=== PATIENT | female | born 1935 | race Caucasian/White ===

== ENCOUNTER 2016-10-18 09:25 | Inpatient (IN) | payer MEDICARE, OTHER ==
[~2016-10-18] VITALS: Ht 172.7 cm; Wt 66.2 kg
[~2016-10-18 09:25] MED LIST: AUGMENTIN 875-1 EACH PO; CHRONULAC20 GM/30 M PO; COREG 3.125M3.125 MG PO; DOCUSATE SODIU1 EACH PO; DOXYCYCLINE MO100 MG PO; DULERA 200 MCG8.8 GM INH; ELIQUIS5 MG PO; FLUOXETINE HCL20 MG PO; LEVAQUIN500 MG PO; MEDROL DOSEPAK 24 MG PO; MEGACE TAB 40 M40 MG PO; MELATONIN10 MG PO; MIRALAX PACK 171 PKT GT; NORVASC 5 MG TAB5 MG PO; PREDNISONE20 MG PO; PRILOSEC OTC20 MG PO; PROTONIX40 MG PO; STOOL SOFTENER100 MG PO; TUMS/TITRALAC500 MG PO; TYLENOL 325MG325 MG PO; VENTOLIN/PROVE0.5 ML INH; VITAMIN B-121000 MCG PO; VITAMIN B12-FO1 EACH PO
[2016-10-18 11:21] LABS: HEMOGLOBIN 14.3 gm/dl (12.3-15.3); RED BLOOD COUNT 5.09 M/UL (4.00-5.10); WHITE BLOOD COUNT 16.7 K/UL (4.5-11.0)
[2016-10-19 05:33] LABS: HEMOGLOBIN 11.4 gm/dl (12.3-15.3); RED BLOOD COUNT 4.12 M/UL (4.00-5.10); WHITE BLOOD COUNT 12.3 K/UL (4.5-11.0)
[2016-10-19] MEDS ORDERED: LASIX20 MG PO (11:00)
[2016-10-19] MEDS ORDERED: POTASSIUM CHLO20 ME1 PO (12:46)
[2016-10-19] MEDS ORDERED: SEROQUEL50 MG PO (12:46)
[2016-10-19] MEDS ORDERED: SYMBICORT 160-1 INHA INH (12:47)
[2016-10-20 04:09] LABS: HEMOGLOBIN 11.6 gm/dl (12.3-15.3); RED BLOOD COUNT 4.19 M/UL (4.00-5.10); WHITE BLOOD COUNT 10.4 K/UL (4.5-11.0)
[2016-10-20] MEDS ORDERED: BACTRIM DS TAB1 EACH PO (09:20)
[2016-10-20] MEDS ORDERED: INCRUSE ELLI62.5 MCG INH (17:39)
== END 2016-10-20 10:10 | disposition home or self-care (01) | DRG 189 ==
LOC: ER1 09:25 → PROG CARE 18:32 → ZEROF 18:32 → PROG CARE 10-19 14:21
PROVIDERS: Physician Assistant; ADMIT Family Medicine
DX: J96.21 Acute and chronic respiratory failure with hypoxia (principal); I13.0 Hypertensive heart and chronic kidney disease with heart failure and stage 1 through stage 4 chronic kidney disease, or unspecified chronic kidney disease; I50.30 Unspecified diastolic (congestive) heart failure; G91.2 (Idiopathic) normal pressure hydrocephalus; N39.0 Urinary tract infection, site not specified; J44.9 Chronic obstructive pulmonary disease, unspecified; N18.3 Chronic kidney disease, stage 3 (moderate); I27.2 Other secondary pulmonary hypertension; B96.20 Unspecified Escherichia coli [E. coli] as the cause of diseases classified elsewhere; K52.9 Noninfective gastroenteritis and colitis, unspecified; R07.89 Other chest pain; R91.1 Solitary pulmonary nodule; G89.29 Other chronic pain; M54.2 Cervicalgia; F41.9 Anxiety disorder, unspecified; Z86.718 Personal history of other venous thrombosis and embolism; Z85.038 Personal history of other malignant neoplasm of large intestine; Z87.891 Personal history of nicotine dependence; Z86.73 Personal history of transient ischemic attack (TIA), and cerebral infarction without residual deficits; Z98.2 Presence of cerebrospinal fluid drainage device; Z79.2 Long term (current) use of antibiotics; Z79.818 Long term (current) use of other agents affecting estrogen receptors and estrogen levels; Z99.81 Dependence on supplemental oxygen; Z79.51 Long term (current) use of inhaled steroids; Z79.899 Other long term (current) drug therapy; Z88.5 Allergy status to narcotic agent; Z90.49 Acquired absence of other specified parts of digestive tract; Z98.0 Intestinal bypass and anastomosis status; Z98.890 Other specified postprocedural states; Z82.3 Family history of stroke
CPT/HCPCS: ECHO; 36415; 36600; 71010; 78582; 80053; 81001; 82550; 82553; 82803; 83605; 83690; 83874; 83880; 84484; 85025; 85379; 85610; 85730; 87040; 87077; 87086; 87186; 93005; 93306; 94640; 94664; 96365; 96372; 96375; 99285; A9540; A9567; J0696; J1650; J2405; J2930; J7050; Q9965

== ENCOUNTER 2017-01-23 03:22 | Emergency (ER) | payer MEDICARE ==
[~2017-01-23 03:22] MED LIST changes: +BACTRIM DS TAB1 EACH PO; +INCRUSE ELLI62.5 MCG INH; +LASIX20 MG PO; +POTASSIUM CHLO20 ME1 PO; +SEROQUEL50 MG PO; +SYMBICORT 160-1 INHA INH
[2017-01-23 05:06] LABS: HEMOGLOBIN 12.2 gm/dl (12.3-15.3); RED BLOOD COUNT 4.63 M/UL (4.00-5.10); WHITE BLOOD COUNT 8.8 K/UL (4.5-11.0)
== END 2017-01-23 12:35 | disposition home or self-care (01) ==
LOC: ER1 03:22
PROVIDERS: Physician Assistant
DX: R06.02 Shortness of breath (principal); R07.89 Other chest pain; J44.9 Chronic obstructive pulmonary disease, unspecified; I10 Essential (primary) hypertension; F41.9 Anxiety disorder, unspecified; C18.9 Malignant neoplasm of colon, unspecified; I27.2 Other secondary pulmonary hypertension; Z88.5 Allergy status to narcotic agent; Z86.718 Personal history of other venous thrombosis and embolism
CPT/HCPCS: 36415; 36600; 71010; 80053; 81001; 82550; 82553; 82803; 83874; 83880; 84484; 85025; 85379; 87086; 93005; 99285; J7050; Q9963